=== PATIENT | female | born 1990 | race Caucasian/White ===

== ENCOUNTER → 2021-01-12 15:05 | Outpatient (BNVA) | payer OTHER, SELFPAY | PROVIDERS: Visit Provider Physician Assistant | DX: L30.9 Dermatitis, unspecified (principal) | CPT/HCPCS: 99203 ==

== ENCOUNTER 2021-07-13 12:15 | Emergency (ER) | payer OTHER, SELFPAY ==
--- NOTE | ~2021-07-13 | XR_ITS ---
EXAMINATION: XR CHEST CLINICAL INFORMATION: Cough and throat pain COMPARISON: None TECHNIQUE: 2 views of the chest were obtained. FINDINGS: No significant abnormality is noted involving the heart, lungs, mediastinum, bony thorax or soft tissues. XR/XR chest 2V IMPRESSION: No acute cardiopulmonary disease.
--- NOTE | ~2021-07-13 | CT_ITS ---
EXAMINATION: CT SOFT TISSUE NECK WITHOUT CONTRAST CLINICAL INFORMATION: Pain and hoarseness for one month COMPARISON: None TECHNIQUE: Helical imaging was performed in the axial plane with generation of coronal and sagittal reformatted images. This CT examination was performed using dose optimization techniques as appropriate, variously including the following: *Automated exposure control *Adjustment of mA and/or kV according to patient size (this includes techniques or standardized protocols for targeted exams where dose is matched to indication/reason for exam; i.e. extremities or head) *Use of iterative reconstruction technique DLP: 1053 mGy-cm FINDINGS: There is prominent soft tissue seen in the oropharynx. A discrete mass is not appreciated. The epiglottis, aryepiglottic folds and larynx are normal. There is shotty cervical lymphadenopathy. Larger lymph nodes are upper normal in size bilateral submandibular region level 2. No enlarged lymph nodes are seen. The salivary glands and thyroid gland are normal. Visualized intracranial structures are normal. The orbits are normal. Visualized paranasal sinuses, mastoid air cells and middle ears are clear. Temporomandibular joints are normal. Visualized lung apices are clear. The inferior mediastinum is normal. Bony structures are normal. No dental abscess is seen. CT/CT soft tissue neck wo con IMPRESSION: Prominent soft tissue in the oropharynx. No mass seen however sensitivity is lower without IV contrast. Correlation with visual inspection recommended. Shotty cervical lymphadenopathy.
[2021-07-13 12:44] VITALS: BP 135/84; PULSE 88; RESP 17; TEMP 36.6; O2SAT 97; BMI 49.8
[2021-07-13 13:29] LABS: Strep A Nucleic Acid Negative (Negative)
[2021-07-13] MEDS: Mag&Al/Sim/Diphenhyd/Lidocaine 10 ML ORAL.SUSP PO (14:38)
[2021-07-13 14:41] LABS: MANUAL DIFF FLAG NO
[2021-07-13 14:54] LABS: Basophils Percent Auto 0.3 % (0-2); Eosinophils Absolute Auto 0.1 X10*3/uL (0.0-0.4); Hematocrit 42.3 % (37.0-47.0); Hemoglobin 13.4 g/dl (12.0-16.0); Imm Gran Abs Auto 0.11 X10*3/uL (0.00-0.03); Imm Gran Pct Auto 1.2 % (0.0-0.4); Lymphocytes Percent Auto 21.6 % (20-40); Mean Corpuscular HGB Conc 31.7 g/dl (31.0-35.0); Mean Corpuscular Volume 88.5 fL (80.0-98.0); Mean Platelet Volume 10.2 fL (9.4-12.3); Monocytes Absolute Auto 0.9 X10*3/uL (0.1-1.2); Monocytes Percent Auto 9.6 % (2-11); Neutrophils Percent Auto 66.3 % (45-73); Platelet Count 245 X10*3/uL (160-400); Red Blood Count 4.78 X10*6/uL (4.20-5.50)
[2021-07-13 15:06] LABS: Alanine Aminotransferase 35 U/L (0-31); Albumin Level 4.2 g/dL (3.5-5.0); Alkaline Phosphatase 111 U/L (39-117); Anion Gap 12 (12-20); Aspartate Amino Transferase 26 U/L (5-31); Bilirubin Total 0.5 mg/dL (0.0-1.0); Blood Urea Nitrogen 13 mg/dL (9-16); Calcium 9.3 mg/dL (8.4-10.2); Carbon Dioxide 27 mmol/L (22-29); Chloride 101 mmol/L (96-108); Estimated Glomerular Filt Rate > 60; Glucose Random 92 mg/dL (60-115); Magnesium 2.3 mg/dL (1.6-2.6); Potassium 4.4 mmol/L (3.3-5.1); Sodium 136 mmol/L (135-145); Total Protein 7.5 g/dL (6.5-8.0)
[2021-07-13 15:11] LABS: Estimated Average Glucose 114 mg/dL; Hemoglobin A1c % 5.6 %
[2021-07-13 15:13] LABS: HCG Quantitative < 2 mIU/mL
--- NOTE | 2021-07-13 15:21 | ED.URI ---
HPI - URI/Sore Throat General Chief Complaint: General Medical Stated Complaint: Laryngitis/Sores in mouth Time Seen by Provider: 07/13/21 13:42 Source: patient and family (Mother at bedside) Mode of arrival: ambulatory Limitations: no limitations History of Present Illness HPI Narrative: 31-year-old female presenting to the ED with complaints of sores in her mouth, sore throat worse with swallowing for approximately 1 month. She also complaints of a cough with chest tightness with mild shortness of breath and bilateral ear pain for approximately 1 week. She reports that she was seen by multiple providers prior to this and was diagnosed with canker sores and laryngitis and given Magic mouthwash although no symptomatic relief and she is concerned that it is something else therefore she came here for further evaluation treatment. Patient is currently on amoxicillin and a course of steroids since 07/10/2021 although still no symptomatic relief. She denies any fevers, chills, dizziness, headaches, neck pain/stiffness, trouble swallowing, chest pain, dyspnea on exertion, orthopnea, palpitations, paresthesias, numbness/tingling, nausea/vomiting/diarrhea constipation, abdominal pain, back pain, rashes, recent travel or sick contacts, dysuria, hematuria, abnormal vaginal discharge, lower extremity edema, similar is or other symptoms, thoughts of STDs or any other symptoms complaints or concerns at this time. MD elicited complaint: other (Multiple complaints) Consistency: constant and progressively worsening Severity: severe Description of mucous: clear and watery Able to tolerate fluids by mouth: Yes Exacerbating factors: swallowing Relieving factors: other (Mild relief with Magic mouthwash for a few minutes only per the patient) Associated symptoms: voice changes, rhinorrhea, nasal congestion, sore throat, cough and shortness of breath Treatments prior to arrival: other (She has tried Magic mouthwash) Related Data Allergies Allergy/AdvReac Type Severity Reaction Status Date / Time No Known Allergies Allergy Unverified 11/25/19 15:54 Review of Systems Review of Systems: Constitutional : No Weight loss, No Fever, + Chills, No Night Sweats, + Fatigue, + Malaise ENT/Mouth : + nasal congestion/rhinorrhea/sore throat/oral lesions/bilateral ear pain/difficulty swallowing/hoarseness, No Hearing loss, No Sinus Pain Eyes: No Eye Pain, No Swelling, No Redness, No Foreign Body, No Discharge, No Vision Changes Cardiovascular : No Chest Pain, + SOB, No Dyspnea on Exertion, No Orthopnea, No Edema, No Palpitations Respiratory : + Cough, No Sputum, No Wheezing Gastrointestinal : No Nausea, No Vomiting, No Diarrhea, No Constipation, No abdominal Pain, No Hematochezia, No Melena Genitourinary : no irregular bleeding, No Dysuria, No Urinary Frequency, No Hematuria, No Urinary Incontinence, No Urgency, No Flank Pain, No Urinary Flow Changes, No Hesitancy Musculoskeletal : No joint pain, + Myalgias, No Joint Swelling Skin : No Skin Lesions, No rash Neuro : No Weakness, No Numbness, No Paresthesias, No Loss of Consciousness, No Dizziness, No Headache Psych : No Anxiety/Panic, No Depression, No SI/HI/AH/VH, No Social Issues, Heme/Lymph: No Bruising, No Bleeding,No Lymphadenopathy Endocrine : No Polyuria, No Polydipsia, No Temperature Intolerance Yes all other systems are reviewed and are negative [facility] Past Medical History Attestation statement: The following information was validated with the patient. Social History Social History Advance Directives: No Advance Directives Information Provided: No Physical Exam Vital Signs: Vital Signs: Last Vital Signs Temp 97.9 F 07/13/21 12:44 Pulse 88 07/13/21 12:44 Resp 17 07/13/21 12:44 BP 135/84 07/13/21 12:44 Pulse Ox 97 07/13/21 12:44 BMI result Body Mass Index 49.8 vital signs have been reviewed as normal and appeared to be correct. Blood pressure normal. Heart rate normal. Respiration rate normal. Temperature normal. Oxygen saturation normal. Appearance: Alert. Oriented X3. No acute distress. Head: Normal external exam. Normocephalic. Atraumatic. Eyes: PERRLA. EOMI. Conjunctiva and sclera normal. Eyelids normal. ENT: EAC normal. TM's Normal. Patient noted to have multiple canker sores throughout her entire mouth. No sores noted on the outer lips does not appear like herpes simplex. Otherwise the soft and hard palate are within normal limits. Uvula midline. Moist mucous membranes. No lesions/ulcerations or masses noted on the tongue. Hoarseness to her voice. No trismus noted. No drooling noted. No muffled voice noted. Neck: Normal inspection. Neck supple. FROM. No adenopathy. Thyroid Normal. No tracheal deviation noted. No crepitus is noted. No meningeal signs. No neck mass noted. No signs of trauma noted. CVS: Normal heart rate and rhythm. Heart sound normal. Pulses normal throughout. No murmurs/rales/gallops. Respiratory: No respiratory distress. Painless inspiration. Breath sounds normal. No wheezes/rales/rhonchi noted. Chest nontender. No crepitus is noted. No signs of trauma noted. No accessory muscle usage noted or decreased air movement noted. Abdomen: Soft and nontender. Bowel sounds normal in all 4 quadrants. No distention noted. No organomegaly noted. No visible injury noted. Back: Full range of motion noted. Skin: Skin warm and dry. Normal skin color. Normal skin turgor. No rashes/lesions/lacerations noted. Extremities: Extremities exhibit normal range of motion and nontender. Neuro: Oriented X 3. No motor deficit. No sensory deficit. Reflexes normal. Normal steady gait. No focal neuro deficits noted. CN's II-XII intact bilaterally? Vascular: + radial pulses/+ 2 distal pedal pulses/+2 dorsalis pedis b/l. Normal cap refill. No cyanosis noted to upper extremity nails and lower extremity toes nails. Course Course Course Narrative: 14pm - 31-year-old female presenting to the ED with complaints of sores in her mouth, sore throat worse with swallowing for approximately 1 month. She also complaints of a cough with chest tightness with mild shortness of breath and bilateral ear pain for approximately 1 week. She reports that she was seen by multiple providers prior to this and was diagnosed with canker sores and laryngitis and given Magic mouthwash although no symptomatic relief and she is concerned that it is something else therefore she came here for further evaluation treatment. Patient is currently on amoxicillin and a course of steroids since 07/10/2021 although still no symptomatic relief. Plan: Labs including strep, HIV, Monospot, syphilis. Patient requesting to be checked for diabetes as well. Will obtain a chest x-ray, CT scan of soft tissue neck without contrast. Provide Magic mouthwash and re-evaluate. Reevaluation(s) Reevaluation #1: - labs reviewed and ALT 35 otherwise all other labs are within normal limits. Patient negative for syphilis. Patient negative for Monospot. Patient negative for strep. HIV will be pending - at this time waiting for CT scan of soft tissue neck and chest x-ray will re-evaluate Time: 15:29 Reevaluation #2: - CT scan of soft tissue neck without contrast reported limited due to no contrast usage although they were unable to see EMS. And on my exam she is able to swallow. No trismus or drooling noted. Tolerating secretions well. No masses noted to the throat. Not consistent with dental/pharyngeal/peritonsillar abscess. Therefore patient most likely URI symptoms with canker sores will DC home with instructions to continue taking her previously prescribed medications and to return if any new or worsening symptoms. Patient with mother at bedside understand agree this plan. Time: 15:55 MDM - URI/Sore Throat Medical Records Attestation: I reviewed the patient's medical records. Lab Data Attestation: I reviewed the patient's lab results. Result diagrams: 07/13/21 14:30 07/13/21 14:30 Labs: Lab Results 07/13/21 07/13/21 07/13/21 Range/Units 12:54 14:30 14:30 WBC (4.8-10.8) X10*3/uL RBC (4.20-5.50) X10*6/uL Hgb (12.0-16.0) g/dl Hct (37.0-47.0) % MCV (80.0-98.0) fL MCH (27.0-33.0) pg MCHC (31.0-35.0) g/dl RDW (11.0-16.0) % Plt Count (160-400) X10*3/uL MPV (9.4-12.3) fL Immature Gran % (Auto) (0.0-0.4) % Neut % (Auto) (45-73) % Lymph % (Auto) (20-40) % Mccone % (Auto) (2-11) % Eos % (Auto) (0-4) % Baso % (Auto) (0-2) % Lymph # (Auto) (1.2-4.9) X10*3/uL Mccone # (Auto) (0.1-1.2) X10*3/uL Eos # (Auto) (0.0-0.4) X10*3/uL Baso # (Auto) (0.0-0.2) X10*3/uL Abs Immat Gran (auto) (0.00-0.03) X10*3/uL Absolute Neuts (auto) (2.0-8.3) x10*3/uL Absolute Nucleated RBC (0.0-0.012) X10*3/uL Nucleated RBC % (auto) (0.0-0.2) /100WBC Sodium (135-145) mmol/L Potassium (3.3-5.1) mmol/L Chloride (96-108) mmol/L Carbon Dioxide (22-29) mmol/L Anion Gap (12-20) BUN (9-16) mg/dL Creatinine (0.5-1.4) mg/dL Estim Creat Clear Calc Estimated GFR Random Glucose (60-115) mg/dL Estimat Average Glucose mg/dL Hemoglobin A1c % % Calcium (8.4-10.2) mg/dL Magnesium (1.6-2.6) mg/dL Total Bilirubin (0.0-1.0) mg/dL AST (5-31) U/L ALT (0-31) U/L Alkaline Phosphatase (39-117) U/L Total Protein (6.5-8.0) g/dL Albumin (3.5-5.0) g/dL Beta HCG, Quant mIU/mL T.pallidum Ab (EIA) Nonreactive (Nonreactive) Monoscreen Negative (Negative) S. pyogenes GrpA MICHAEL Negative (Negative) 07/13/21 07/13/21 07/13/21 Range/Units 14:30 14:30 14:30 WBC 9.0 (4.8-10.8) X10*3/uL RBC 4.78 (4.20-5.50) X10*6/uL Hgb 13.4 (12.0-16.0) g/dl Hct 42.3 (37.0-47.0) % MCV 88.5 (80.0-98.0) fL MCH 28.0 (27.0-33.0) pg MCHC 31.7 (31.0-35.0) g/dl RDW 13.0 (11.0-16.0) % Plt Count 245 (160-400) X10*3/uL MPV 10.2 (9.4-12.3) fL Immature Gran % (Auto) 1.2 H (0.0-0.4) % Neut % (Auto) 66.3 (45-73) % Lymph % (Auto) 21.6 (20-40) % Mccone % (Auto) 9.6 (2-11) % Eos % (Auto) 1.0 (0-4) % Baso % (Auto) 0.3 (0-2) % Lymph # (Auto) 2.0 (1.2-4.9) X10*3/uL Mccone # (Auto) 0.9 (0.1-1.2) X10*3/uL Eos # (Auto) 0.1 (0.0-0.4) X10*3/uL Baso # (Auto) 0.0 (0.0-0.2) X10*3/uL Abs Immat Gran (auto) 0.11 H (0.00-0.03) X10*3/uL Absolute Neuts (auto) 6.0 (2.0-8.3) x10*3/uL Absolute Nucleated RBC 0.000 (0.0-0.012) X10*3/uL Nucleated RBC % (auto) 0.0 (0.0-0.2) /100WBC Sodium 136 (135-145) mmol/L Potassium 4.4 (3.3-5.1) mmol/L Chloride 101 (96-108) mmol/L Carbon Dioxide 27 (22-29) mmol/L Anion Gap 12 (12-20) BUN 13 (9-16) mg/dL Creatinine 1.03 (0.5-1.4) mg/dL Estim Creat Clear Calc 91.0 Estimated GFR > 60 Random Glucose 92 (60-115) mg/dL Estimat Average Glucose mg/dL Hemoglobin A1c % % Calcium 9.3 (8.4-10.2) mg/dL Magnesium 2.3 (1.6-2.6) mg/dL Total Bilirubin 0.5 (0.0-1.0) mg/dL AST 26 (5-31) U/L ALT 35 H (0-31) U/L Alkaline Phosphatase 111 (39-117) U/L Total Protein 7.5 (6.5-8.0) g/dL Albumin 4.2 (3.5-5.0) g/dL Beta HCG, Quant < 2 mIU/mL T.pallidum Ab (EIA) (Nonreactive) Monoscreen (Negative) S. pyogenes GrpA MICHAEL (Negative) 07/13/21 Range/Units 14:30 WBC (4.8-10.8) X10*3/uL RBC (4.20-5.50) X10*6/uL Hgb (12.0-16.0) g/dl Hct (37.0-47.0) % MCV (80.0-98.0) fL MCH (27.0-33.0) pg MCHC (31.0-35.0) g/dl RDW (11.0-16.0) % Plt Count (160-400) X10*3/uL MPV (9.4-12.3) fL Immature Gran % (Auto) (0.0-0.4) % Neut % (Auto) (45-73) % Lymph % (Auto) (20-40) % Mccone % (Auto) (2-11) % Eos % (Auto) (0-4) % Baso % (Auto) (0-2) % Lymph # (Auto) (1.2-4.9) X10*3/uL Mccone # (Auto) (0.1-1.2) X10*3/uL Eos # (Auto) (0.0-0.4) X10*3/uL Baso # (Auto) (0.0-0.2) X10*3/uL Abs Immat Gran (auto) (0.00-0.03) X10*3/uL Absolute Neuts (auto) (2.0-8.3) x10*3/uL Absolute Nucleated RBC (0.0-0.012) X10*3/uL Nucleated RBC % (auto) (0.0-0.2) /100WBC Sodium (135-145) mmol/L Potassium (3.3-5.1) mmol/L Chloride (96-108) mmol/L Carbon Dioxide (22-29) mmol/L Anion Gap (12-20) BUN (9-16) mg/dL Creatinine (0.5-1.4) mg/dL Estim Creat Clear Calc Estimated GFR Random Glucose (60-115) mg/dL Estimat Average Glucose 114 mg/dL Hemoglobin A1c % 5.6 % Calcium (8.4-10.2) mg/dL Magnesium (1.6-2.6) mg/dL Total Bilirubin (0.0-1.0) mg/dL AST (5-31) U/L ALT (0-31) U/L Alkaline Phosphatase (39-117) U/L Total Protein (6.5-8.0) g/dL Albumin (3.5-5.0) g/dL Beta HCG, Quant mIU/mL T.pallidum Ab (EIA) (Nonreactive) Monoscreen (Negative) S. pyogenes GrpA MICHAEL (Negative) Imaging Data CT scan soft tissue neck: Attestation: I personally reviewed and interpreted this imaging study as follows: Radiologist's impression: FINDINGS: There is prominent soft tissue seen in the oropharynx. A discrete mass is not appreciated. The epiglottis, aryepiglottic folds and larynx are normal. There is shotty cervical lymphadenopathy. Larger lymph nodes are upper normal in size bilateral submandibular region level 2. No enlarged lymph nodes are seen. The salivary glands and thyroid gland are normal. Visualized intracranial structures are normal. The orbits are normal. Visualized paranasal sinuses, mastoid air cells and middle ears are clear. Temporomandibular joints are normal. Visualized lung apices are clear. The inferior mediastinum is normal. Bony structures are normal. No dental abscess is seen. CT/CT soft tissue neck wo con IMPRESSION: Prominent soft tissue in the oropharynx. No mass seen however sensitivity is lower without IV contrast. Correlation with visual inspection recommended. Shotty cervical lymphadenopathy. Chest x-ray: Attestation: I personally reviewed and interpreted this imaging study as follows: Radiologist's impression: FINDINGS: No significant abnormality is noted involving the heart, lungs, mediastinum, bony thorax or soft tissues. XR/XR chest 2V IMPRESSION: No acute cardiopulmonary disease. Discharge Plan Discharge Clinical Impression: Acute upper respiratory infection, Laryngitis, Canker sore Patient Disposition: Home, Self-Care Instructions: Laryngitis (ED), Canker Sores (ED) Referrals: Physician,Unknown J [Primary Care Provider] - 2 days (Your PCP) Print Language: Irish
[2021-07-13 15:23] LABS: HIV AB/AG Nonreactive (Nonreactive); HIV Num 1 0.08 S/CO (0.00-0.99)
[2021-07-13 15:25] LABS: Syphilis Screen Nonreactive (Nonreactive)
[2021-07-13 15:26] LABS: Monotest Negative (Negative)
== END 2021-07-13 16:08 | disposition home or self-care (01) ==
PROVIDERS: Physician Assistant Medical; Emergency Provider Emergency Medicine Emergency Medical Services
DX: J04.0 Acute laryngitis (principal); K12.0 Recurrent oral aphthae
CPT/HCPCS: 36415; 70490; 71046; 80053; 83036; 83735; 84702; 85025; 86308; 86780; 87389; 87651; 99283; 99284

== ENCOUNTER 2022-12-02 11:31 | Emergency (ER) | payer OTHER, SELFPAY ==
[2022-12-02 11:43] VITALS: BP 168/100; PULSE 66; O2SAT 100
== END 2022-12-02 12:30 | disposition left against medical advice (07) ==
PROVIDERS: Emergency Provider Emergency Medicine
DX: R10.9 Unspecified abdominal pain (principal)

== ENCOUNTER 2023-12-19 15:23 | Outpatient (REF) | payer OTHER, SELFPAY | END 2023-12-19 15:24 | disposition home or self-care (01) | LOC: HO.LAB 15:23 | PROVIDERS: Visit Provider Physician Assistant Medical | DX: Z13.89 Encounter for screening for other disorder (principal) | CPT/HCPCS: 36415; 86706 ==